=== PATIENT | male | born 1980 | race Caucasian/White ===

== ENCOUNTER 2019-05-03 19:35 | Emergency (ER) | payer MEDICAID ==
[2019-05-03] MEDS: KETOROLAC 60 MG INJ IM (22:59)
[2019-05-03] MEDS: METHOCARBAMOL 750 MG TAB PO (23:04)
== END 2019-05-04 02:41 | disposition home or self-care (01) ==
LOC: FTE 05-04 02:41
DX: M62.838 Other muscle spasm (principal); F17.210 Nicotine dependence, cigarettes, uncomplicated
CPT/HCPCS: 72040; 96372; 99284-25